=== PATIENT | male | born 1955 | race Caucasian/White ===

== ENCOUNTER → 2023-10-09 13:44 | Outpatient (BNVA) | payer BC, SELFPAY | PROVIDERS: PCP Family Medicine; Visit Provider Family Medicine | DX: R06.02 Shortness of breath (principal); R91.8 Other nonspecific abnormal finding of lung field | CPT/HCPCS: 71046 ==

== ENCOUNTER 2024-01-06 13:49 | Outpatient (CLI) | payer MEDICARE, SELFPAY ==
--- NOTE | 2024-01-06 14:05 | CT_ITS ---
WS: [id number] CT chest w con* [id number] HISTORY: ABNORMAL IMAGING/SHORT OF BREATH TECHNIQUE: Axial imaging performed through the thorax. Coronal and sagittal reformats are submitted. All CT scans at [facility] use at least one of these dose optimization techniques: automated exposure control; mA and/or kV adjustment per patient size (includes targeted exams where dose is mat ched to clinical indication); or iterative reconstruction. CONTRAST: Omnipaque 350; 100 mL IV. DLP: 264.84 mGy.cm COMPARISON: Chest radiograph 10/09/2023 Lungs and central airway: Mildly decreased lung volumes. Paraseptal emphysema. Lung volumes are decre ased due to poor inspiration with areas of atelectasis and dependent changes. There is also breathing motion artifact obscuring fine detail. Biapical pleural thickening and scarring. 10 mm noncalcified mass at the RIGHT lung base. Pleura: Normal. No pleural effusion. Heart and pericardium: Mild RIGHT heart enlargement. No effusion. Mediastinum and dany: No mediastinum or hilar adenopathy. Vessels: Normal size aortic and pulmonary artery. No coronary artery calcifications. Chest wall and lower neck: Patient has numerous soft tissue nodules throughout the thorax and upper a bdomen that correspond to the findings on the recent chest radiograph. 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 Upper abdomen: Visualized liver and spleen are negative. Negative pancreas is visualized. LEFT parape lvic cysts and extrarenal pelvis. No calyceal dilatation but only a small portion of the kidney is in cluded. Osseous structures: No destructive process. IMPRESSION: 1. Paraseptal emphysema. Poor inspiration resulting in decreased lung volumes. 2. 10 mm noncalcified nodule at the RIGHT lung base. Indeterminate solid pulmonary nodule measuring 10 mm. In a patient of unknown risk level with a solid nodule >8 mm, consider PET/CT or tissue sampling, vs. CT at 3 months. 3. No mediastinal or hilar adenopathy. 4. Numerous soft tissue nodules throughout the thorax and upper abdomen. Consistent with a history of neurofibromatosis. 5. Incompletely visualized LEFT kidney. Parapelvic cysts versus mild hydronephrosis. This can be reev aluated by ultrasound to exclude hydronephrosis.
[2024-01-06 16:28] LABS: Blood Urea Nitrogen 13 mg/dL (8-23); Glomerular Filtration Rate 84.4 mL/min (90-130)
[2024-01-06] MEDS: iohexol 350 mg/mL 500 mL Btl (per mL) IV (16:32)
== END 2024-01-06 13:50 | disposition home or self-care (01) ==
LOC: RAD 13:49
PROVIDERS: Radiology Neuroradiology; PCP Family Medicine; Visit Provider Family Medicine
DX: R91.8 Other nonspecific abnormal finding of lung field (principal); R06.02 Shortness of breath; J43.8 Other emphysema
CPT/HCPCS: 71260; 82565; 84520; Q9967

== ENCOUNTER 2024-01-27 11:01 | Outpatient (CLI) | payer MEDICARE, SELFPAY ==
--- NOTE | 2024-01-27 11:22 | PETR_ITS ---
PROCEDURE INFORMATION: Exam: PET/CT Skull Base to Mid-thigh Exam date and time: 01/27/2024 12:32 PM Age: 68 years old Clinical indication: Abnormal findings; 2. 10 mm noncalcified nodule at the right lung base. Indeterminate solid pulmonary nodule measuring 10 mm. In a patient of unknown risk level with a. Solid nodule >8 mm, consider pet/ct or tissue sampling, vs. CT at 3 months. ; Additional info: Abnormal imaging of lung LABS AND CLINICAL REPORTS: Glucose: 101 mg/dl Treatment strategy for malignancy (PET staging): Initial Staging (PI) TECHNIQUE: Imaging protocol: Following at least four-hour fasting and following the injection of radiopharmaceutical, low dose CT images were obtained. Then, PET images were obtained. Attenuation corrected images were constructed using the CT scan. Fused images of PET and CT were reviewed. The standardized uptake values (SUV) reported below are maximum values within a region of interest, expressed in gm/ml. Exam includes orbital meatal line to mid-thigh. Radiopharmaceutical: 11.9 mCi F-18 FDG (Fluorodeoxyglucose), IV. Time of imaging post radiopharmaceutical administration: 1 hour COMPARISON: No relevant prior studies available. FINDINGS: Brain: Visualized brain has normal physiologic uptake. Pharynx: No abnormal uptake. Larynx: No abnormal uptake. Lungs, pleura and trachea: Redemonstrated 1 cm nodule in the right lower lobe without increased FDG uptake. Heart: Normal physiologic uptake. Mediastinal space: No abnormal uptake. Liver: No abnormal uptake. Gallbladder and bile ducts: No abnormal uptake. Pancreas: No abnormal uptake. Spleen: No abnormal uptake. Adrenal glands: No abnormal uptake. Kidneys and ureters: Redemonstrated moderate left hydroureteronephrosis to the level of the bladder. No obstructing stones are seen. Stomach and bowel: No abnormal uptake. Urinary bladder: Markedly distended and trabeculated bladder. Vasculature: No abnormal uptake. Lymph nodes: No abnormal uptake. No lymphadenopathy in the head, neck, chest, abdomen, pelvis, and extremities. Bones/joints: No abnormal uptake in the visualized axial and appendicular skeleton. Soft tissues: There are couple ovoid skin lesions above the left hip region with low level FDG uptake (SUV max 2.1). Mild FDG uptake associated with an ovoid low-density lesion within the right adductor musculature with SUV max 2.7. This measures approximately 4.1 x 6.8 cm. PET/PET skulltothigh INITIAL [id number] IMPRESSION: 1. The 1 cm right lower lobe nodule does not have increased FDG uptake. 2. Mild FDG uptake associated with an ovoid low-density lesion within the right adductor musculature with SUV max 2.7. This measures approximately 4.1 x 6.8 cm and could reflect a resolving fluid collection of some sort. Consider MRI with and without contrast. 3. There are couple ovoid skin lesions above the left hip region with low level FDG uptake. The should be amenable to direct inspection. 4. Markedly distended and trabeculated bladder with moderate left hydronephrosis. Findings may reflect bladder outlet obstruction.
== END 2024-01-27 11:02 | disposition home or self-care (01) ==
LOC: RAD 11:02
PROVIDERS: PCP Family Medicine; Visit Provider Family Medicine
DX: R91.1 Solitary pulmonary nodule (principal); R93.89 Abnormal findings on diagnostic imaging of other specified body structures; L98.9 Disorder of the skin and subcutaneous tissue, unspecified; N13.30 Unspecified hydronephrosis
CPT/HCPCS: 78815; A9552